=== PATIENT | female | born 1960 ===

== ENCOUNTER 2017-02-08 09:12 | Emergency (ER) | payer OTHER, MEDICAID ==
[2017-02-08 09:26] VITALS: BMI 25.2
[2017-02-08 09:34] VITALS: RESP 18; TEMP 98.2; O2SAT 100
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
[2017-02-08 11:16] VITALS: BP 112/68; PULSE 62
--- NOTE | 2017-02-08 11:17 | CT ---
PROCEDURE: CT HEAD WITHOUT CONTRAST. HISTORY: Head Injury COMPARISON: None TECHNIQUE: Axial computed tomography images were obtained through the head/brain without intravenous contrast. Radiation dose: Total exam DLP = 745.73 mGy-cm. This CT exam was performed using one or more of the following dose reduction techniques: Automated exposure control, adjustment of the mA and/or kV according to patient size, and/or use of iterative reconstruction technique. FINDINGS: HEMORRHAGE: No intracranial hemorrhage. BRAIN: Scruggs-white matter differentiation is preserved. There is no mass, mass effect or abnormal extra-axial fluid collection. There are coarse atherosclerotic calcifications in the cavernous carotid arteries. VENTRICLES: There is mild age-related global parenchymal volume loss and proportionate enlargement of the ventricles and cortical sulci. There is a cavum septum pellucidum. CALVARIUM: There is no calvarial fracture or extracranial soft tissue swelling. PARANASAL SINUSES: Predominantly clear. MASTOID AIR CELLS: Predominantly clear. OTHER FINDINGS: P IMPRESSION: No acute intracranial abnormality.
--- NOTE | 2017-02-08 12:29 | CARD ---
APPROVED REPORT EKG Measurement Heart [id number] <Conclusion> Normal sinus rhythm Normal ECG
== END 2017-02-08 11:36 | disposition home or self-care (01) ==
LOC: MERGE 09:12 → ED 09:12
DX: S09.90XA Unspecified injury of head, initial encounter (principal); W18.30XA Fall on same level, unspecified, initial encounter; Y92.811 Bus as the place of occurrence of the external cause; R42 Dizziness and giddiness; R51 Headache

== ENCOUNTER 2017-03-09 15:28 | Emergency (ER) | payer OTHER, MEDICAID ==
[2017-03-09 15:34] VITALS: BMI 25.7
[2017-03-09 15:40] VITALS: BP 113/73; PULSE 118; TEMP 97.7
[2017-03-09] MEDS ORDERED: Morphine 4 mg/ml ISec IVP STA (15:59)
--- NOTE | 2017-03-09 16:00 | ED PDOC ---
Arrival/HPI - General Chief Complaint: Trauma Time Seen by Provider: 03/09/17 15:39 Historian: Patient, Spouse - History of Present Illness Narrative History of Present Illness (Text): 03/09/17 16:00 This 57 yo female with pmh htn/dm/cad (only on the aspirin), nkda, presents to this ED c/o worsening of her right arm x 2 days. Patient stated she had a fall x 4 weeks ago. Patient stated she saw Dr. Mehdi Brink Orthopedist x 1 week ago, who prescribed her Percocet, and patient has CT, and MRI scan done on her arm. Pain has worsen, and arm is more swollen. Denies sob, CP, abdominal pain , dizziness, or abnormal gait. Time/Duration: Other (see hpi) Context: Home Past Medical History - Provider Review Nursing Documentation Reviewed: Yes - Infectious Disease Hx of Infectious Diseases: None - Cardiac Hx Cardiac Disorders: Yes Hx Hypertension: Yes - Pulmonary Hx Respiratory Disorders: No - Neurological Hx Neurological Disorder: No - HEENT Hx HEENT Disorder: No - Renal Hx Renal Disorder: No - Endocrine/Metabolic Hx Endocrine Disorders: Yes Hx Diabetes Mellitus Type 1: Yes - Hematological/Oncological Hx Blood Disorders: No - Integumentary Hx Dermatological Disorder: No - Musculoskeletal/Rheumatological Hx Musculoskeletal Disorders: No - Gastrointestinal Hx Gastrointestinal Disorders: No - Genitourinary/Gynecological Hx Genitourinary Disorders: No - Psychiatric Hx Psychophysiologic Disorder: No Hx Substance Use: No - Surgical History Hx Hysterectomy: Yes Other/Comment: abd. hernia - Anesthesia Hx Anesthesia: Yes Hx Anesthesia Reactions: No Hx Malignant Hyperthermia: No Family/Social History - Physician Review Nursing Documentation Reviewed: Yes Family/Social History: No Known Family HX Smoking Status: Never Smoked Hx Alcohol Use: No Hx Substance Use: No Allergies/Home Meds Allergies/Adverse Reactions: Allergies ibuprofen [From Motrin] Allergy (Verified 03/09/17 15:34) ANGIOEDEMA Home Medications: Home Meds Medication Instructions Recorded Confirmed Diclofenac Potassium [Diclofenac 50 mg PO DAILY 03/09/17 03/09/17 Potassium] Insulin Aspart Prot/Insuln Asp 1 unit SQ ACHS 03/09/17 03/09/17 [Novolog Mix 70-30 Vial] MetFORMIN [glucoPHAGE] 800 mg PO DAILY 03/09/17 03/09/17 oxyCODONE/Acetaminophen [Percocet 1 tab PO BID 03/09/17 03/09/17 5/325 mg Tab] Review of Systems - Review of Systems Constitutional: Normal. absent: Fatigue, Weight Change, Fevers Eyes: Normal ENT: Normal Respiratory: Normal Cardiovascular: Normal Gastrointestinal: Normal Genitourinary Female: Normal Musculoskeletal: Other (see HPI) Skin: Normal Neurological: Normal Endocrine: Normal Hemo/Lymphatic: Normal Psychiatric: Normal Physical Exam Vital Signs Temp Pulse Resp BP Pulse Ox 03/09/17 17:30 18 98 03/09/17 15:39 97.7 F 118 H 19 113/73 95 Temperature: Afebrile Blood Pressure: Normal Pulse: Regular Respiratory Rate: Normal Appearance: Positive for: Well-Appearing, Non-Toxic, Comfortable Pain Distress: None Mental Status: Positive for: Alert and Oriented X 3 - Systems Exam Head: Present: Atraumatic, Normocephalic Pupils: Present: PERRL Extroacular Muscles: Present: EOMI Conjunctiva: Present: Normal Mouth: Present: Moist Mucous Membranes Neck: Present: Normal Range of Motion. No: Meningeal Signs Respiratory/Chest: Present: Clear to Auscultation, Good Air Exchange. No: Respiratory Distress, Accessory Muscle Use Cardiovascular: Present: Regular Rate and Rhythm, Normal S1, S2. No: Murmurs Abdomen: Present: Normal Bowel Sounds. No: Tenderness, Distention, Peritoneal Signs Back: Present: Normal Inspection. No: CVA Tenderness Upper Extremity: Present: NORMAL PULSES, Tenderness, Swelling, Neurovascularly Intact, Capillary Refill < 2s, Other (Most of tenderness located proximal right arm. No cellulitis, or abscess). No: Cyanosis, Edema, Erythema, Temperature Abnormalties Lower Extremity: Present: Normal Inspection. No: Edema Neurological: Present: GCS=15, CN II-XII Intact, Speech Normal, Motor Func Grossly Intact, Normal Sensory Function, Normal Cerebellar Funct, Gait Normal Skin: Present: Warm, Dry, Normal Color. No: Rashes Psychiatric: Present: Alert, Oriented x 3, Normal Insight, Normal Concentration Medical Decision Making ED Course and Treatment: 03/09/17 17:14 Re-evaluation. Patient feels better. Discussed results and plan with patient who expresses understanding. Counseling was provided regarding the diagnosis and prognosis. All questions answered and there is agreement with the plan to discharge home with instructions. Patient stable for discharge. Return if symptoms persist or worsen Patient was recommended to take Augmentin, and Valium as instructed. To f/u pmd in 1-2 days for revaluation. Re-evaluation Time: 17:14 Reassessment Condition: Re-examined, Improved - RAD Interpretation Narrative RAD Interpretations (Text): 03/09/17 17:14 Right Upper Extremity Venous Doppler: No DVT as Per Radiology Radiology Orders: 03/09/17 15:58 DUPLEX UPPER EXTRM VEIN RIGHT [US] Stat - Medication Orders Current Medication Orders: Discontinued Medications Amoxicillin/Clavulanate Potassium (Augmentin 875 Mg-125 Mg Tab) 1 tab PO STAT STA PRN Reason: Protocol Stop: 03/09/17 17:16 Last Admin: 03/09/17 17:28 Dose: 1 tab Morphine Sulfate (Morphine) 4 mg IVP STAT STA Stop: 03/09/17 16:00 Last Admin: 03/09/17 16:40 Dose: 4 mg Ondansetron HCl (Zofran Inj) 4 mg IVP STAT STA Stop: 03/09/17 16:00 Last Admin: 03/09/17 16:41 Dose: 4 mg Disposition/Present on Arrival - Present on Arrival Any Indicators Present on Arrival: No History of DVT/PE: No History of Uncontrolled Diabetes: No Urinary Catheter: No History of Decub. Ulcer: No History Surgical Site Infection Following: None - Disposition Have Diagnosis and Disposition been Completed?: Yes Diagnosis: Arm pain Disposition: HOME/ ROUTINE Disposition Time: 17:15 Patient Plan: Discharge Condition: IMPROVED Discharge Instructions (ExitCare): Arm Pain (ED) Additional Instructions: Call doctor Mehdi Brink, Orthopedist for follow up visit in 1-2 days. Take medication as instructed. Continue with home pain medication. use warmth compress. Return to emergency if symptoms worsen. If arm swelling persist, you will need to have a repeat ultrasound of your right arm in 7 days. Prescriptions: Amoxicillin/Clavulanate [Augmentin 875 MG-125 MG] 1 tab PO BID #20 tab diaZEpam [Valium] 5 mg PO DAILY #7 tab Referrals: Mehdi Brink MD [Medical Doctor] - Follow up with primary PCP,NO [Primary Care Provider] - Follow up with primary Forms: ClaimReturn ([place])
[2017-03-09] MEDS ORDERED: Amoxicillin-Clav 875-125 mg Tab PO STA (17:15)
--- NOTE | 2017-03-09 17:16 | US ---
PROCEDURE: Right upper extremity venous US CLINICAL HISTORY: Arm pain and swelling Evaluate for deep venous thrombosis. PHYSICIAN(S): Will Sepulveda M.D FINDINGS: The exam is somewhat limited by edema. The visualized rightinternal jugular vein is sonographically normal and compressible. No evidence of obstruction or thrombus is seen. The visualized segments of the right subclavian vein are patent with normal waveforms. No sonographic evidence of obstruction or thrombosis is seen. The visualized deep venous system of the proximal right upper extremity is sonographically normal and compressible. IMPRESSION: 1. No sonographic evidence for deep venous thrombosis in the visualized segments of the right upper extremity.
[2017-03-09 17:31] VITALS: RESP 18; O2SAT 98
== END 2017-03-09 17:31 | disposition home or self-care (01) ==
LOC: ED 15:28
DX: M79.601 Pain in right arm (principal)
CPT/HCPCS: 93971; 96374; 96375; 99284; J2270; J2405